=== PATIENT | male | born 1985 | race African-American/Black ===

== ENCOUNTER 2021-08-29 16:25 | Emergency (ER) | payer OTHER ==
[~2021-08-29] VITALS: Ht 185.4 cm; Wt 65.8 kg
[2021-08-29 17:00] LABS: BASOPHILS # (AUTO) 0.2 K/uL (0.0-0.2); BASOPHILS % (AUTO) 1.3 % (0.0-2.0); EOSINOPHILS % (AUTO) 0.4 % (0.0-6.0); HEMATOCRIT 47 % (39-51); HEMOGLOBIN 16.2 g/dL (13.5-17.5); LYMPHOCYTES # (AUTO) 2.8 K/uL (0.8-4.8); LYMPHOCYTES % (AUTO) 22.4 % (20.0-44.0); MEAN CORPUSCULAR HGB CONC 35 g/dl (31.0-36.0); MEAN CORPUSCULAR VOLUME 80 fL (80-96); MONOCYTES # (AUTO) 1.6 K/uL (0.1-1.30); MONOCYTES % (AUTO) 12.6 % (2.0-12.0); NEUTROPHILS # (AUTO) 7.9 K/uL (1.8-8.9); NEUTROPHILS % (AUTO) 63.3 % (43.0-81.0); PLATELET COUNT (AUTO) 412 K/uL (150-450); RED BLOOD CELL COUNT(AUTO) 5.92 MIL/uL (4.5-6.0); WHITE BLOOD COUNT (AUTO) 12.5 K/uL (4.3-11.0)
[2021-08-29] MEDS ORDERED: IV NS 0.9% 1,000 ML BAG IV ONE ×2 (17:00→18:00)
--- NOTE | 2021-08-29 17:00 | NUR ---
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 ON ROM AIR, CONNECTED TO THE MONITOR AND PULSE OX. KEPT COMFORTABLE, WILL CONTINUE TO MONITOR ACCORDINGLY.
[2021-08-29 17:18] LABS: CREATININE 2.7 mg/dL (0.6-1.3)
[2021-08-29 17:19] LABS: POTASSIUM 2.8 mmol/L (3.5-5.1)
[2021-08-29] MEDS ORDERED: TRAZ-252 PO (17:27)
[2021-08-29] MEDS ORDERED: HYDR50TA61 PO (17:27)
[2021-08-29] MEDS ORDERED: OLAN20TA3 PO (17:27)
[2021-08-29] MEDS ORDERED: RISP3TAB61 PO (17:27)
[2021-08-29] MEDS ORDERED: PIPERACILLIN /TAZOBACTAM 3.375 G in IV D5W 50 ML IV ONE (18:00)
[2021-08-29] MEDS ORDERED: POTASSIUM CHLORIDE 20 MEQ TAB.PRT.SR PO ONE ×2 (18:00→18:25)
[2021-08-29] MEDS ORDERED: POTASSIUM CHLORIDE 10 MEQ TABLET.SA PO ONE (18:00)
[2021-08-29 18:10] LABS: ALANINE AMINOTRANSFERASE 24 U/L (12-78); ALBUMIN 4.4 g/dL (3.4-5.0); ALCOHOL, BLOOD < 3 mg/dL (0-0); ALKALINE PHOSPHATASE 121 U/L (46-116); ASPARTATE AMINOTRANSFERASE 12 U/L (15-37); BILIRUBIN,DIRECT 0.1 mg/dL (0.0-0.2); BILIRUBIN,TOTAL 0.4 mg/dL (0.2-1.0); MAGNESIUM 2.2 mg/dL (1.8-2.4); TOTAL PROTEIN, SERUM 7.9 g/dL (6.4-8.2)
[2021-08-29] MEDS ORDERED: POTASSIUM CHLORIDE 10 MEQ TABLET.SA ONE (18:25)
[2021-08-29] MEDS ORDERED: VANCOMYCIN 1 GM in IV D5W 250 ML IV ONE (18:30)
[2021-08-29] MEDS ORDERED: MAGNESIUM HYDROXIDE 30 ML UDC PO PRN (19:00)
[2021-08-29] MEDS ORDERED: ONDANSETRON HCL/PF 4 MG/2 ML VIAL IVP PRN (19:00)
[2021-08-29] MEDS ORDERED: LORAZEPAM INJ 2 MG/ML VIAL IV PRN (19:00)
[2021-08-29] MEDS ORDERED: TRAZODONE 50 MG TABLET PO PRN (19:00)
[2021-08-29] MEDS ORDERED: ENOXAPARIN SODIUM 40 MG/0.4 ML DISP.SYRIN SQ SCH (19:00)
[2021-08-29] MEDS ORDERED: MAG HYDROX/AL HYDROX/SIMETH 30 ML UDC PO PRN (19:00)
[2021-08-29] MEDS ORDERED: ACETAMINOPHEN 325 MG TABLET PO PRN (19:00)
[2021-08-29] MEDS ORDERED: IV NS 0.9% 1,000 ML IV PRN (19:00)
[2021-08-29] MEDS ORDERED: hydrOXYzine PAMOATE 50 MG CAPSULE PO PRN (19:00)
[2021-08-29] MEDS ORDERED: Z GUARD REMEDY 2 OZ OINT TP PRN (19:00)
[2021-08-29] MEDS ORDERED: MORPHINE SULFATE INJ 2 MG/ML DISP.SYRIN IV PRN (19:00)
--- NOTE | 2021-08-29 19:25 | NUR ---
BED 314-1
[2021-08-29] MEDS ORDERED: LABETALOL HCL IV 100MG VIAL IV PRN (20:00)
[2021-08-29] MEDS ORDERED: hydrOXYzine PAMOATE 25 MG CAPSULE PO PRN (20:30)
--- NOTE | 2021-08-29 20:39 | NUR ---
Patient does not wish to proceed with medical care recommended by Dr. Nation,. Patient given information related to possible complications, up to and including , which could occur as a result of leaving the hospital at this time. Patient verbalizes understanding of risks involved due to leaving against medical advice. Patient has signed AMA form. Dr nation spoket o the pt in [facility] risk vs benefits of leaving AMA. [employer]IST made aware
[2021-08-29] MEDS ORDERED: risperiDONE 1 MG TABLET PO SCH (22:00)
[2021-08-29] MEDS ORDERED: OLANZAPINE 10 MG TABLET PO SCH (22:00)
[2021-08-29 23:45] VITALS: BP 100/64
== END 2021-08-29 20:39 | disposition left against medical advice (07) ==
LOC: ER 16:29 → TELE 19:28 → UNDOADMIN 19:28 → ER 20:39
DX: A41.9 Sepsis, unspecified organism (principal); R55 Syncope and collapse; N17.9 Acute kidney failure, unspecified; R65.20 Severe sepsis without septic shock; Z79.899 Other long term (current) drug therapy; E86.0 Dehydration; E46 Unspecified protein-calorie malnutrition; Z68.1 Body mass index [BMI] 19.9 or less, adult; E87.6 Hypokalemia; Z20.822 Contact with and (suspected) exposure to COVID-19
CPT/HCPCS: 36415; 70450; 71045; 80048; 80076; 80320; 83605; 83735; 84484; 85025; 85730; 87040 ×2; 87426; 93005; 96361; 96365; 96367; 99291; J2543; J3370; J7030 ×2; J7060; Q0177; G0480

== ENCOUNTER 2024-12-03 09:34 | Emergency (ER) | payer OTHER ==
[~2024-12-03] VITALS: Ht 185.4 cm; Wt 72.6 kg
[~2024-12-03 09:34] MED LIST: HYDR50TA61 PO; OLAN20TA3 PO; RISP3TAB61 PO; TRAZ-252 PO
[2024-12-03 09:40] VITALS: TEMP 98.3
[2024-12-03] MEDS ORDERED: HYDR-3980 PO (10:05)
[2024-12-03] MEDS ORDERED: HYDROCODONE/APAP 10/325MG TABLET ONE (10:08)
[2024-12-03] MEDS: HYDROCODONE/APAP 10/325MG TABLET PO ONE (10:11)
[2024-12-03 11:16] VITALS: BP 125/79; O2SAT 97
== END 2024-12-03 11:00 | disposition home or self-care (01) ==
LOC: ER 09:36
DX: T24.202A Burn of second degree of unspecified site of left lower limb, except ankle and foot, initial encounter (principal); F17.200 Nicotine dependence, unspecified, uncomplicated; F20.9 Schizophrenia, unspecified; F32.A Depression, unspecified; F41.9 Anxiety disorder, unspecified; Z59.00 Homelessness unspecified; Z88.5 Allergy status to narcotic agent; X00.0XXA Exposure to flames in uncontrolled fire in building or structure, initial encounter; Y93.89 Activity, other specified; Y92.89 Other specified places as the place of occurrence of the external cause; Y99.8 Other external cause status

== ENCOUNTER 2025-01-09 05:37 | Emergency (ER) | payer OTHER ==
[~2025-01-09] VITALS: Ht 185.4 cm; Wt 68.0 kg
[~2025-01-09 05:37] MED LIST changes: +HYDR-3980 PO
[2025-01-09] MEDS ORDERED: CEPH-570 PO (09:00)
[2025-01-09] MEDS ORDERED: SULF1TAB48 PO (09:00)
[2025-01-09] MEDS ORDERED: IBUP-1955 PO (09:00)
[2025-01-09] MEDS: BACI/NEOM/POLY B OINT PKT 1 UDPKT PACKET TP ONE (09:09)
[2025-01-09 09:12] VITALS: BP 135/98; TEMP 98.5; O2SAT 99
== END 2025-01-09 09:13 | disposition home or self-care (01) ==
LOC: ER 05:43
DX: T24.202D Burn of second degree of unspecified site of left lower limb, except ankle and foot, subsequent encounter (principal); L03.116 Cellulitis of left lower limb; F17.200 Nicotine dependence, unspecified, uncomplicated; F20.9 Schizophrenia, unspecified; F32.A Depression, unspecified; F41.9 Anxiety disorder, unspecified; Z88.5 Allergy status to narcotic agent; X08.8XXD Exposure to other specified smoke, fire and flames, subsequent encounter
CPT/HCPCS: 93971-TC